=== PATIENT | female | born 1940 | race Asian ===

== ENCOUNTER 2021-05-11 11:12 | Emergency (ER) | payer MEDICARE, BC ==
[~2021-05-11] VITALS: Ht 154.9 cm; Wt 55.3 kg
[2021-05-11] MEDS ORDERED: Colace100 MG PO (11:56)
[2021-05-11] MEDS ORDERED: Percocet 5-3251 EACH PO (11:56)
[2021-05-11] MEDS ORDERED: LIDO700A20 TOP (11:56)
[2021-05-11] MEDS ORDERED: VALACYCLOVIR1000 MG PO (11:56)
== END 2021-05-11 12:07 | disposition home or self-care (01) ==
LOC: ER 11:12
DX: B02.9 Zoster without complications (principal); Z79.899 Other long term (current) drug therapy
CPT/HCPCS: 99282

== ENCOUNTER → 2023-08-12 | Outpatient (CLI) | payer MEDICARE, BC ==
[~2023-08-12] MED LIST: Colace100 MG PO; LIDO700A20 TOP; Percocet 5-3251 EACH PO; VALACYCLOVIR1000 MG PO
[2023-08-12 20:17] LABS: BASOPHILS ABSOLUTE AUTO 0.09 K/mm3 (0.00-0.23); BASOPHILS PERCENT AUTO 1 % (0-2); EOSINOPHILS ABSOLUTE AUTO 0.22 K/mm3 (0.00-0.68); EOSINOPHILS PERCENT AUTO 3 % (0-6); Hematocrit 46.8 % (33.0-51.0); Hemoglobin 14.8 g/dL (11.5-16.0); IMMATURE GRAN ABSOLUTE AUTO 0.01 K/mm3 (0.00-0.10); IMMATURE GRAN PERCENT AUTO 0 % (0-1); LYMPHOCYTES ABSOLUTE AUTO 2.16 K/mm3 (0.84-5.20); LYMPHOCYTES PERCENT AUTO 31 % (21-46); MONOCYTES ABSOLUTE AUTO 0.44 K/mm3 (0.16-1.47); MONOCYTES PERCENT AUTO 6 % (4-13); Mean Corpuscular HGB 28.4 pg (26.0-34.0); Mean Corpuscular HGB Conc 31.6 g/dL (31.5-36.5); Mean Corpuscular Volume 90 fL (80-100); Mean Platelet Volume 10.3 fL (9.1-12.4); NEUTROPHILS ABSOLUTE AUTO 3.95 K/mm3 (1.96-9.15); NEUTROPHILS PERCENT AUTO 58 % (41-73); Platelet Count 288 K/mm3 (150-400); RDW Coefficient Variation 11.9 % (11.7-14.2); RDW Standard Deviation 39.1 fL (35.1-46.3); Red Blood Cell Count 5.21 M/mm3 (3.80-5.20); White Blood Cell Count 6.87 K/mm3 (4.00-11.30)
== END | disposition home or self-care (01) ==
LOC: LAB 15:35 → LAB SHORT 15:35
PROVIDERS: Family Medicine
DX: E11.69 Type 2 diabetes mellitus with other specified complication (principal); E11.65 Type 2 diabetes mellitus with hyperglycemia; E53.8 Deficiency of other specified B group vitamins; E55.9 Vitamin D deficiency, unspecified; I10 Essential (primary) hypertension
CPT/HCPCS: 83036; 85025

== ENCOUNTER 2024-04-20 16:31 | Emergency (ER) | payer MEDICARE, BC ==
[~2024-04-20] VITALS: Ht 149.9 cm; Wt 52.2 kg
[~2024-04-20 16:31] MED LIST changes: +ALEN70 PO; +ASPI81CH PO; +ATORVASTATIN CA20 MG PO; +Acetaminophen650 M1 PO; +CEPH500 PO; +DOXYCYCLINE HY100 M1 PO; +LOSARTAN POTASS25 M2 PO; +METFORMIN HCL500 M3 PO; +METO50ER PO; +ONDA4ODT MM; +PLAVIX75 MG PO; +TRAM50 PO
[2024-04-20 17:16] LABS: BASOPHILS ABSOLUTE AUTO 0.08 K/mm3 (0.00-0.23); BASOPHILS PERCENT AUTO 1 % (0-2); EOSINOPHILS ABSOLUTE AUTO 0.08 K/mm3 (0.00-0.68); EOSINOPHILS PERCENT AUTO 1 % (0-6); Hematocrit 49.2 % (33.0-51.0); Hemoglobin 15.8 g/dL (11.5-16.0); IMMATURE GRAN ABSOLUTE AUTO 0.01 K/mm3 (0.00-0.10); IMMATURE GRAN PERCENT AUTO 0 % (0-1); LYMPHOCYTES ABSOLUTE AUTO 1.74 K/mm3 (0.84-5.20); LYMPHOCYTES PERCENT AUTO 28 % (21-46); MONOCYTES ABSOLUTE AUTO 0.43 K/mm3 (0.16-1.47); MONOCYTES PERCENT AUTO 7 % (4-13); Mean Corpuscular HGB 27.9 pg (26.0-34.0); Mean Corpuscular HGB Conc 32.1 g/dL (31.5-36.5); Mean Corpuscular Volume 87 fL (80-100); Mean Platelet Volume 9.2 fL (9.1-12.4); NEUTROPHILS ABSOLUTE AUTO 3.98 K/mm3 (1.96-9.15); NEUTROPHILS PERCENT AUTO 63 % (41-73); Platelet Count 259 K/mm3 (150-400); RDW Coefficient Variation 12.5 % (11.7-14.2); RDW Standard Deviation 40.1 fL (35.1-46.3); Red Blood Cell Count 5.66 M/mm3 (3.80-5.20); White Blood Cell Count 6.32 K/mm3 (4.00-11.30)
[2024-04-20 17:33] LABS: Albumin, Blood 3.2 g/dL (3.4-5.0); Albumin/Globulin Ratio 0.8 (0.8-1.8); Bilirubin, Total 0.7 mg/dL (0.1-1.0); Bun/Creatinine Ratio 14.6 (12.0-20.0); Calcium, Blood 8.6 mg/dL (8.5-10.1); Creatinine, Blood 0.62 mg/dL (0.40-1.00); Globulin, Blood 3.9 g/dL (2.2-4.0); Potassium, Blood 3.2 mmol/L (3.5-5.5); Total Protein, Blood 7.1 g/dL (6.4-8.2)
[2024-04-21 11:34] LABS: Source, Urine Straight Cath
[2024-04-21 11:42] LABS: Appearance, Urine Hazy (Clear); Bilirubin, Urine Neg (Neg); Blood, Urine Neg (Neg); Color, Urine Yellow (P-Yellow); Glucose Qualitative, Urine 3+ (Neg); Ketones, Urine 2+ (Neg); Leukocyte Esterase, Urine Neg (Neg); Nitrite, Urine Pos (Neg); Protein, Urine 2+ (Neg); Urobilinogen, Urine 2+ (Normal)
--- NOTE | 2024-04-21 12:57 | NUR ---
Met with pt and in ED. Pt is almost entirely aphasic. 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 The 2nd stroke was a few months later, and caused her to lose use of upper and lower BLE function. is the sole caregiver, and recognizes he needs assistance. He reports attempting to transfer pt from bed to w/c when she slid to her buttocks on the floor and hit her head on a side table. reports the patient has lost significant weight over the past year, and has become increasingly debilitated. He is open to hospice, will discuss with [facility] in ER along with caregivers.
[2024-04-21 13:00] LABS: Red Blood Cells, Urine 0-2 /hpf (0-2); Squamous Epithelial Cells Few /hpf (Few)
[2024-04-21 13:01] LABS: Bacteria Many /hpf; Calcium Oxalate Crystals Few /hpf
[2024-04-21 15:30] VITALS: BP 135/59
== END 2024-04-21 15:45 | disposition home or self-care (01) ==
LOC: ER 16:31
PROVIDERS: Physician Assistant; Student in an Organized Health Care Education/Training Program
DX: R53.1 Weakness (principal); Z74.1 Need for assistance with personal care; Z86.73 Personal history of transient ischemic attack (TIA), and cerebral infarction without residual deficits; E11.9 Type 2 diabetes mellitus without complications; I10 Essential (primary) hypertension; Z79.82 Long term (current) use of aspirin; Z79.899 Other long term (current) drug therapy; Z79.84 Long term (current) use of oral hypoglycemic drugs; Z88.8 Allergy status to other drugs, medicaments and biological substances
CPT/HCPCS: 70450; 80053; 81001; 82947; 85025; 99284-25; P9612